=== PATIENT | male | born 1985 | race African-American/Black ===

== ENCOUNTER 2021-04-17 18:08 | Emergency (ER) | payer SELFPAY ==
[2021-04-17 18:21] VITALS: BP 146/80; PULSE 70; RESP 18; TEMP 36.8; O2SAT 99
--- NOTE | 2021-04-17 18:49 | ED.MALEGU ---
HPI - Male Genitourinary General Chief complaint: Urogenital-Male Stated complaint: STD Time Seen by Provider: 04/17/21 18:32 Source: patient and RN notes reviewed Mode of arrival: ambulatory Limitations: no limitations History of Present Illness HPI Narrative: Patient presents today with a 4-day history of dysuria, urgency, frequency. Denies penile discharge, hematuria, abdominal pain or back pain. Patient had unprotected intercourse approximately 1 week ago with a new partner. Denies history of sexually transmitted infections. Denies any additional symptoms. Related Data Allergies Allergy/AdvReac Type Severity Reaction Status Date / Time No Known Allergies Allergy Verified 04/17/21 18:39 Review of Systems Review of Systems: CONSTITUTIONAL: Denies body aches, fever, chills, or sweats. EYES: Denies visual changes, redness, or discharge. ENT: Denies rhinorrhea, congestion, sore throat, or otalgia. CARDIOVASCULAR: Denies chest pain, palpitations, or edema. RESPIRATORY: Denies cough or dyspnea. GASTROINTESTINAL: Denies abdominal pain, nausea, vomiting, or diarrhea. GENITOURINARY: + Dysuria, urgency, frequency. SKIN: Denies rash, itching, or wounds. MUSCULOSKELETAL: Denies back pain, joint pain, or myalgia. NEUROLOGIC: Denies headache, numbness, tingling, or weakness. PSYCH: Denies depression or anxiety. PMFSH Comments At time of signature, I have reviewed and agree with nursing past medical, surgical, social and family history unless otherwise noted. Please see nursing chart for further information. There is no relevant family history pertinent to the presenting complaint Exam Narrative: GENERAL: Well-appearing, well-nourished, and in no acute distress. HEAD: Normocephalic, atraumatic. EYES: EOMI. No redness or drainage. Conjunctivae normal. ENT: Mucous membranes pink and moist. NECK: Normal AROM. CHEST: No respiratory distress. : Deferred MUSCULOSKELETAL: No bony tenderness. EXTREMITIES: Normal range of motion. No edema. SKIN: Warm, dry, no rash. Capillary refill normal. Normal skin turgor. NEURO: No focal deficits. Alert and oriented x3. Gait steady. PSYCH: Normal affect. No signs of depression or anxiety. Course Vital Signs Vital signs: Vital Signs Temperature 98.3 F 04/17/21 18:21 Pulse Rate 70 04/17/21 18:21 Respiratory Rate 18 04/17/21 18:21 Blood Pressure 146/80 H 04/17/21 18:21 Pulse Oximetry 99 04/17/21 18:21 Temperature 98.3 F 04/17/21 18:21 Pulse Rate 70 04/17/21 18:21 Respiratory Rate 18 04/17/21 18:21 Blood Pressure 146/80 H 04/17/21 18:21 Pulse Oximetry 99 04/17/21 18:21 Reviewed. Pt has been instructed to follow up with his PCP regarding his elevated blood pressure today. MDM - Male Genitourinary Differential Diagnosis Differential diagnosis: Likely urinary tract infection, urethritis, prostatitis and other (Gonorrhea, chlamydia, trichomonas) Lab Data Attestation: I reviewed the patient's lab results. Labs: Lab Results 04/17/21 Range/Units 18:29 C.trachomatis RNA (TMA) Pending N.gonorrhoeae RNA (TMA) Pending T. vaginalis Amp RNA Pending Urine Glucose Negative Reference Range: Negative Urine Bilirubin Negative Reference Range: Negative Urine Ketone Negative Reference Range: Negative Urine Specific [place] 1.030 Reference Range:1.001-1.035 Urine Blood Negative Reference Range: Negative * * Urine pH 6.0 Reference Range: 5.0-9.0 Urine Protein Negative
[2021-04-17] MEDS: LIDOCAINE HCL 1% LOCAL INJ 20 ML VIAL IM (18:54)
[2021-04-17] MEDS: cefTRIAXone 500 MG VIAL IM (18:54)
== END 2021-04-17 19:13 | disposition home or self-care (01) ==
PROVIDERS: Emergency Provider Nurse Practitioner
DX: R30.0 Dysuria (principal)
CPT/HCPCS: 81003; 87491; 87591; 87661; 96372; 99203; G0463; J0696